=== PATIENT | female | born 1970 | race Caucasian/White ===

== ENCOUNTER → 2016-10-21 | Outpatient (CLI) | payer BC ==
--- NOTE | 2016-10-22 09:28 | MM ---
Reason for exam: screening (asymptomatic). Last mammogram was performed 1 year ago. Physical Findings: A clinical breast exam by your physician is recommended on an annual basis and results should be correlated with mammographic findings. MG 3D Screening Mammo W/Cad Bilateral CC and MLO view(s) were taken. Prior study comparison: October 14, 2015, bilateral MG 3d screening mammo w/cad. June 25, 2013, bilateral MG screening mammo w CAD. The breast tissue is extremely dense which could obscure a lesion on mammography. There are typically benign round calcifications in both breasts. There is no discrete abnormality. ASSESSMENT: Negative, BI-RAD 1 RECOMMENDATION: Routine screening mammogram of both breasts in 1 year.
== END | disposition home or self-care (01) ==
LOC: RADMAMWWP 07:41
PROVIDERS: ATTEND Obstetrics & Gynecology
DX: Z12.31 Encounter for screening mammogram for malignant neoplasm of breast (principal)
CPT/HCPCS: 77063; G0202

== ENCOUNTER → 2016-10-22 | Outpatient (CLI) | payer BC ==
[2016-10-22 16:37] LABS: Estradiol 183.4 pg/mL
== END | disposition home or self-care (01) ==
LOC: LABWHC1 10:53
PROVIDERS: ATTEND Clinical Nurse Specialist Women's Health
DX: N95.1 Menopausal and female climacteric states (principal); R53.83 Other fatigue
CPT/HCPCS: 36415; 82306; 82607; 82670; 83001; 84144; 84403

== ENCOUNTER → 2016-10-22 | Outpatient (CLI) | payer BC ==
--- NOTE | 2016-10-22 14:41 | US ---
EXAMINATION TYPE: US thyroid st tissue head/neck DATE OF EXAM: 10/22/2016 COMPARISON: NONE CLINICAL HISTORY: E04.2 Nontoxic Multinodular Goiter. Follow up exam, patient had 4 previous nodules biopsied and has since gone on thyroid medication and states her thryoid feels smaller GLAND SIZE: Right Lobe: 5.7 x 1.8 x 1.8 cm Overall Parenchyma: heterogenous Left Lobe: 4.1 x 1.4 x 1.2 cm Overall Parenchyma: heterogeneous Isthmus Thickness: 0.9 cm NODULES RIGHT: # of nodules measured on right: 2 1. 1.7 X 2.0 x 2.0 cm hyperechoic solid nodule at the mid pole with well-defined margins. This nod ule is wider than tall and shows no intranodular vascularity. Prior size: 2.3 x 2.0 x 2.1 cm 2. 1.3 X 1.4 x 1.2 cm hyperechoic solid nodule at the lower pole with well-defined margins. This no dule is wider than tall and shows no intranodular vascularity. Prior size: not noted previously, maybe normal thryoid tissue posterior to larger nodule that is bulbus in appearance versus true nodule second nodule noted previously appears to be normal tissue on today's scan with no definite borders Radiologist: Inspection, these nodules appear similar to 10/31/2015. LEFT: # of nodules measured on left: 0 *unable to define nodule previously seen ISTHMUS: # of nodules measured in the isthmus: 1 1. 1.5 X 1.4 x 0.9 cm hyperechoic solid nodule with well-defined margins. This nodule is wider lala n tall and shows intranodular vascularity. Prior size: 1.3 x 1.5 x 0.9 cm Bilateral neck scanned, no evidence of lymphadenopathy. IMPRESSION: On inspection, the thyroid lobe nodules appear to been present previously and are stable from 6. Follow-up study in 6 months can be performed for confirmation of stability
== END | disposition home or self-care (01) ==
LOC: RADUSWWP 09:38
PROVIDERS: ATTEND Internal Medicine Endocrinology, Diabetes & Metabolism
DX: E04.2 Nontoxic multinodular goiter (principal)
CPT/HCPCS: 76536

== ENCOUNTER → 2017-11-08 | Outpatient (CLI) | payer BC ==
--- NOTE | 2017-11-10 13:24 | MM ---
Reason for exam: screening (asymptomatic). Last mammogram was performed 1 year and 1 month ago. History: Took hormonal contraceptives for 2 years. Physical Findings: A clinical breast exam by your physician is recommended on an annual basis and results should be correlated with mammographic findings. MG 3D Screening Mammo W/Cad Bilateral CC and MLO view(s) were taken. Prior study comparison: October 21, 2016, bilateral MG 3d screening mammo w/cad. October 14, 2015, bilateral MG 3d screening mammo w/cad. No significant changes when compared with prior studies. ASSESSMENT: Benign, BI-RAD 2 RECOMMENDATION: Routine screening mammogram of both breasts in 1 year.
== END | disposition home or self-care (01) ==
LOC: RADMAMWWP 16:17
PROVIDERS: ATTEND Obstetrics & Gynecology
DX: Z12.31 Encounter for screening mammogram for malignant neoplasm of breast (principal)
CPT/HCPCS: 77063; 77067

== ENCOUNTER → 2018-11-25 | Outpatient (CLI) | payer BC ==
--- NOTE | 2018-11-28 09:34 | MM ---
Reason for exam: screening (asymptomatic). Last mammogram was performed 1 year and 1 month ago. History: Family history of breast cancer in sister at age 60. Took hormonal contraceptives for 2 years. Physical Findings: A clinical breast exam by your physician is recommended on an annual basis and results should be correlated with mammographic findings. MG 3D Screening Mammo W/Cad Bilateral CC and MLO view(s) were taken. Prior study comparison: November 08, 2017, bilateral MG 3d screening mammo w/cad. October 21, 2016, bilateral MG 3d screening mammo w/cad. The breast tissue is heterogeneously dense. This may lower the sensitivity of mammography. There are benign appearing round calcifications bilaterally. There is no discrete abnormality. ASSESSMENT: Benign, BI-RAD 2 RECOMMENDATION: Routine screening mammogram of both breasts in 1 year.
== END | disposition home or self-care (01) ==
LOC: RADMAMWWP 08:22
PROVIDERS: ATTEND Obstetrics & Gynecology
DX: Z12.31 Encounter for screening mammogram for malignant neoplasm of breast (principal)
CPT/HCPCS: 77063; 77067

== ENCOUNTER → 2020-01-24 | Outpatient (CLI) | payer BC ==
--- NOTE | 2020-01-25 07:19 | US ---
EXAMINATION TYPE: US thyroid st tissue head/neck DATE OF EXAM: 01/24/2020 COMPARISON: US October 22, 2016 CLINICAL HISTORY: E04.2 MULTINODULAR GOITER. Takes thyroid medication. GLAND SIZE: Right Lobe: 5.6 x 2.0 x 1.6 cm Overall Parenchyma: heterogenous Left Lobe: 3.9 x 1.4 x 0.9 cm Overall Parenchyma: heterogeneous Isthmus Thickness: 0.8 cm NODULES RIGHT: # of nodules measured on right: 2 1. 2.2 X 1.9 x 1.5 cm mixed cystic and solid, hyperechoic nodule mid pole, which is wider than tall , with lobulated or irregular margins, without echogenic foci. Prior size: 1.7 x 2.2 x 2.0 cm 2. 1.2 X 1.2 x 1.1 cm solid or almost completely solid, isoechoic nodule in lower pole, which is wi faye than tall, with smooth margins, without echogenic foci. Prior size: 1.3 x 1.4 x 1.2 cm LEFT: # of nodules measured on left: 0 ISTHMUS: # of nodules measured in the isthmus: 1 mid pole 1. 1.4 X 1.2 x 0.8 cm solid or almost completely solid, hyperechoic nodule, which is wider than carlos l, with smooth margins, without echogenic foci. Prior size: 1.5 x 1.4 x 0.9 cm Bilateral neck scanned: no evidence of lymphadenopathy. Redemonstration markedly heterogeneous thyroid with slightly asymmetric right thyroid lobe prominence and bilateral nodules as detailed above without significant interval change from 2017 study. IMPRESSION: As above. No new suspicious nodules.
== END | disposition home or self-care (01) ==
LOC: RADUSWWP 16:22
PROVIDERS: ATTEND Internal Medicine
DX: E04.2 Nontoxic multinodular goiter (principal); E07.89 Other specified disorders of thyroid
CPT/HCPCS: 76536

== ENCOUNTER → 2020-04-10 | Outpatient (CLI) | payer BC ==
--- NOTE | 2020-04-11 14:07 | MM ---
Reason for exam: screening (asymptomatic). Last mammogram was performed 1 year and 4 months ago. History: Patient is postmenopausal. Family history of breast cancer in sister at age 60. Took hormonal contraceptives for 2 years. Physical Findings: A clinical breast exam by your physician is recommended on an annual basis and results should be correlated with mammographic findings. MG 3D Screening Mammo W/Cad Bilateral CC and MLO view(s) were taken. Prior study comparison: November 25, 2018, bilateral MG 3d screening mammo w/cad. November 08, 2017, bilateral MG 3d screening mammo w/cad. The breast tissue is heterogeneously dense. This may lower the sensitivity of mammography. There is no discrete abnormality. No significant changes when compared with prior studies. ASSESSMENT: Negative, BI-RAD 1 RECOMMENDATION: Routine screening mammogram of both breasts in 1 year.
== END | disposition home or self-care (01) ==
LOC: RADMAMWWP 07:06
PROVIDERS: ATTEND Obstetrics & Gynecology
DX: Z12.31 Encounter for screening mammogram for malignant neoplasm of breast (principal); Z80.3 Family history of malignant neoplasm of breast
CPT/HCPCS: 77063; 77067

== ENCOUNTER → 2021-09-29 | Outpatient (CLI) | payer BC ==
--- NOTE | 2021-09-30 10:57 | US ---
EXAMINATION TYPE: US thyroid st tissue head/neck DATE OF EXAM: 09/29/2021 COMPARISON: 01/24/20 CLINICAL HISTORY: E04.2 NONTOXIC MULTINODULAR GOITER. Hx of thyroid nodules. FNA done approx 3 years ago. GLAND SIZE: Right Lobe: 4.4 x 1.9 x 1.8 cm Overall Parenchyma: heterogenous Left Lobe: 4.5 x 1.3 x 1.1 cm Overall Parenchyma: heterogeneous Isthmus Thickness: 1.0 cm NODULES RIGHT: # of nodules measured on right: 2 1. 2.1 X 1.8 x 1.6 cm, mid mid, solid or almost completely solid, hyperechoic nodule, which is wide r than tall, with lobulated or irregular margins, without echogenic foci. TR 3 Prior size: 2.2 x 1.9 x 1.5 cm 2019. 2.0 x 2.0 x 1.7 cm 2017. 2. 1.3 X 1.2 x 1.0 cm, lower mid, solid or almost completely solid, isoechoic nodule, which is wide r than tall, with lobulated or irregular margins, without echogenic foci. Prior size: 1.2 x 1.2 x 1.1 cm LEFT: # of nodules measured on left: 0 ISTHMUS: # of nodules measured in the isthmus: 1 1. 1.5 X 1.4 x 0.8 cm solid or almost completely solid, hyperechoic nodule, which is wider than carlos l, with smooth margins, without echogenic foci. Prior size 1.4 x 1.2 x 0.8 cm. Bilateral neck scanned, no evidence of lymphadenopathy. IMPRESSION: 1. Mildly suspicious nodule right lobe thyroid. 2017 ACR TI-RADS LEVEL: TR-RADS 3 - Mildly Suspicious: Follow if > 1.5 cm, FNA if > 2.5 cm *Highest TI-RADS level nodule reported
== END | disposition home or self-care (01) ==
LOC: RADUSWWP 16:53
PROVIDERS: ATTEND Internal Medicine
DX: E04.2 Nontoxic multinodular goiter (principal)
CPT/HCPCS: 76536

== ENCOUNTER → 2021-10-16 | Outpatient (CLI) | payer BC ==
--- NOTE | 2021-10-19 07:35 | MM ---
Reason for Exam: Screening (asymptomatic). Last mammogram was performed 1 year(s) and 6 month(s) ago. Patient History: Menarche at age 11. First Full-Term at age 29. Postmenopausal. Currently using Progesterone, beginning at age 48 for 3 years. Patient used Hormonal Contraceptives for 2 years. Sister had breast cancer, age 60. Risk Values: Naye 5 year model risk: 2.2%. NCI Lifetime model risk: 18.0%. Prior Study Comparison: 11/08/2017 Bilateral Screening Mammogram, [facility]. 11/25/2018 Bilateral Screening Mammogram, [facility]. 04/10/2020 Bilateral Screening Mammogram, [facility]. Tissue Density: The breast tissue is heterogeneously dense. This may lower the sensitivity of mammography. Findings: Analyzed By CAD. There is no suspicious group of microcalcifications or new suspicious mass in either breast. Overall Assessment: Negative, BI-RAD 1 Management: Screening Mammogram of both breasts in 1 year. A clinical breast exam by your physician is recommended on an annual basis and results should be correlated with mammographic findings. Electronically signed and approved by: Lang Duval DO
== END | disposition home or self-care (01) ==
LOC: RADMAMWWP 08:28
PROVIDERS: ATTEND Obstetrics & Gynecology
DX: Z12.31 Encounter for screening mammogram for malignant neoplasm of breast (principal); Z78.0 Asymptomatic menopausal state; Z80.3 Family history of malignant neoplasm of breast
CPT/HCPCS: 77063; 77067

== ENCOUNTER → 2022-09-16 | Outpatient (CLI) | payer BC ==
--- NOTE | 2022-09-16 19:57 | US ---
EXAMINATION TYPE: US thyroid st tissue head/neck DATE OF EXAM: 09/16/2022 COMPARISON: PRIOR 09/29/2021 CLINICAL INDICATION: Female, 51 years old with history of E04.2 MULTINODULAR GOITER; prior negative t hyroid bx on right GLAND SIZE: Right Lobe: 6.5 x 2.1 x 1.8 cm Overall Parenchyma: heterogenous Left Lobe: 3.7 x 1.2 x 1.6 cm Overall Parenchyma: heterogenous Isthmus Thickness: 1.4 cm NODULES RIGHT: # of nodules measured on right: 2. TR3 nodules 1. 2.6 X 1.9 x 2.0 cm, echogenic solid nodule at the mid pole, which is wider than tall, with jessy h margins, without echogenic foci. Prior size: 2.1 x 1.8 x 1.6 cm 2. 1.3 X 1.2 x 1.2 cm, echogenic solid nodule at the inferior pole, which is wider than tall, with smooth margins, without echogenic foci. Prior size: 1.3 x 1.2 x 1.0 cm LEFT: # of nodules measured on left: 1, TR3 nodule 1. 1.2 X 0.6 x 0.9 cm, echogenic solid nodule at the posterior mid pole, which is wider than tall, with margins, without echogenic foci. Prior size: no previous measurements ISTHMUS: # of nodules measured in the isthmus: 1, TR3 nodule 1. 1.7 X 1.1 x 1.7 cm echogenic, solid nodule, which is wider than tall, with smooth margins, witho ut echogenic foci. Prior size: 1.4 x 1.2 x 0.8 cm Resident Manager notes: Multinodular goiter. Enlarged right lobe. Bilateral neck scanned, no evidence of lymphadenopathy. IMPRESSION: Multinodular goiter. Multiple solid TR3 nodules are present throughout. A nodule on the right measuri ng 2.6 cm has enlarged from 2.1 cm, previously (FNA can be considered for this nodule). A 1.2 cm nodu le on the left may be new and can be followed.
== END | disposition home or self-care (01) ==
LOC: RADUSWWP 13:11
PROVIDERS: ATTEND Internal Medicine
DX: E04.2 Nontoxic multinodular goiter (principal)
CPT/HCPCS: 76536

== ENCOUNTER → 2022-10-22 | Outpatient (CLI) | payer BC ==
--- NOTE | 2022-10-26 08:33 | MM ---
Reason for Exam: Screening (asymptomatic). Last mammogram was performed 1 year(s) and 1 month(s) ago. Patient History: Menarche at age 11. First Full-Term at age 29. Postmenopausal. Patient has history of breast feeding. Currently using Progesterone, beginning at age 48 for 3 years. Patient used Hormonal Contraceptives for 2 years. Sister had breast cancer, age 60. Risk Values: Naye 5 year model risk: 2.3%. NCI Lifetime model risk: 17.8%. Prior Study Comparison: 11/25/2018 Bilateral Screening Mammogram, [facility]. 04/10/2020 Bilateral Screening Mammogram, [facility]. 10/16/2021 Bilateral MG 3D screening mammo w/cad, [facility]. Tissue Density: The breast tissue is heterogeneously dense. This may lower the sensitivity of mammography. Findings: Analyzed By CAD. There is no suspicious group of microcalcifications or new suspicious mass. Overall Assessment: Negative, BI-RAD 1 Management: Screening Mammogram of both breasts in [address] [facility] will attempt to contact patient to return for supplemental views and ultrasound if indicated. Patient should continue monthly self-breast exams. A clinical breast exam by your physician is recommended on an annual basis. This exam should not preclude additional follow-up of suspicious palpable abnormalities. Note on Naye scores and lifetime risk: 1. A Naye score greater than 3% is considered moderate risk. If this is the case, consider specialist referral to assess eligibility for a risk reducing agent. 2. If overall lifetime risk for the development of breast cancer is 20% or higher, the patient may qualify for future screening with alternating mammogram and breast MRI. Electronically signed and approved by: Lang Duval DO
== END | disposition home or self-care (01) ==
LOC: RADMAMWWP 07:28
PROVIDERS: ATTEND Obstetrics & Gynecology
DX: Z12.31 Encounter for screening mammogram for malignant neoplasm of breast (principal); Z78.0 Asymptomatic menopausal state; Z80.3 Family history of malignant neoplasm of breast
CPT/HCPCS: 77063; 77067

== ENCOUNTER → 2024-01-30 | Outpatient (CLI) | payer BC ==
--- NOTE | 2024-01-30 15:21 | US ---
EXAMINATION TYPE: US thyroid st tissue head/neck DATE OF EXAM: 01/30/2024 COMPARISON: 09/16/2022 CLINICAL INDICATION: Female, 53 years old with history of E04.1 THYROID NODULE; Patient denies any ot her signs, symptoms, or relevant history TECHNIQUE: Grayscale and color Doppler imaging of the thyroid gland. FINDINGS: GLAND SIZE: Right Lobe: 5.1 x 1.6 x 2.3 cm Overall Parenchyma: heterogeneous Left Lobe: 4.1 x 1.2 x 1.8 cm Overall Parenchyma: heterogeneous Isthmus Thickness: 1.0 cm NODULES RIGHT: # of nodules measured on right: 2 1. 2.6 X 1.7 x 2.1 cm, upper lateral, Prior size: 2.6 x 1.9 x 1.8 cm TIRADS Score: 3 TIRADS Category 3: Composition: Solid or almost completely solid (2 points). Echogenicity: Hyperechoic or isoechoic (1 point). Shape: Wider than tall (0 points). Margin: Smooth (0 points). Echogenic foci: None or large comet-tail artifacts (0 points) Recommendation: If >2.5cm: FNA; If >1.5cm: Follow up at 1,3,5 years 2. 0.9 X 1.0 x 1.2 cm, lower lateral, Prior size: 1.3 x 1.2 x 1.2 cm TIRADS Score: 3 TIRADS Category 3: Composition: Solid or almost completely solid (2 points). Echogenicity: Hyperechoic or isoechoic (1 point). Shape: Wider than tall (0 points). Margin: Smooth (0 points). Echogenic foci: None or large comet-tail artifacts (0 points) Recommendation: If >2.5cm: FNA; If >1.5cm: Follow up at 1,3,5 years LEFT: # of nodules measured on left: 1 1. 1.6 X 0.8 x 1.3 cm, mid lateral, Prior size: 1.2 x 0.6 x 0.9 cm TIRADS Score: 3 TIRADS Category 3: Composition: Solid or almost completely solid (2 points). Echogenicity: Hyperechoic or isoechoic (1 point). Shape: Wider than tall (0 points). Margin: Smooth (0 points). Echogenic foci: None or large comet-tail artifacts (0 points) Recommendation: If >2.5cm: FNA; If >1.5cm: Follow up at 1,3,5 years ISTHMUS: # of nodules measured in the isthmus: 1 1. 1.8 X 1.0 x 1.4 cm solid or almost completely solid, Prior size: 1.7 x 1.1 x 1.7 cm TIRADS Score: 3 TIRADS Category 3: Composition: Solid or almost completely solid (2 points). Echogenicity: Hyperechoic or isoechoic (1 point). Shape: Wider than tall (0 points). Margin: Smooth (0 points). Echogenic foci: None or large comet-tail artifacts (0 points) Recommendation: If >2.5cm: FNA; If >1.5cm: Follow up at 1,3,5 years Bilateral neck scanned, no evidence of lymphadenopathy. IMPRESSION: Heterogenous thyroid gland with thyroid nodules present. Correlate with thyroid markers for thyroidit is. On thyroid nodule in the right mid criteria for tissue sampling measuring up to 2.6 cm if not alr sangita performed. [facility], , 01/30/2024 3:19 PM
== END | disposition home or self-care (01) ==
LOC: RADUSWWP 14:32
PROVIDERS: ATTEND Internal Medicine
DX: E06.9 Thyroiditis, unspecified (principal)
CPT/HCPCS: 76536

== ENCOUNTER → 2024-02-09 | Outpatient (CLI) | payer BC ==
--- NOTE | 2024-02-10 11:46 | MM ---
Reason for Exam: Screening (asymptomatic). Last mammogram was performed 1 year(s) and 3 month(s) ago. Patient History: Menarche at age 11. First Full-Term at age 29. Postmenopausal. Patient has history of breast feeding. Currently using Progesterone, beginning at age 48 for 3 years. Patient used Hormonal Contraceptives for 2 years. Sister had breast cancer, age 60. Risk Values: Naye 5 year model risk: 2.4%. NCI Lifetime model risk: 17.5%. Prior Study Comparison: 04/10/2020 Bilateral Screening Mammogram, [facility]. 10/16/2021 Bilateral MG 3D screening mammo w/cad, [facility]. 10/22/2022 Bilateral MG 3D screening mammo w/cad, [facility]. Tissue Density: The breasts are heterogeneously dense, which may obscure small masses. Findings: Analyzed By CAD. There is no suspicious group of microcalcifications or new suspicious mass in either breast. Overall Assessment: Negative, BI-RAD 1 Management: Screening Mammogram of both breasts in 1 year. . Patient should continue monthly self-breast exams. A clinical breast exam by your physician is recommended on an annual basis. This exam should not preclude additional follow-up of suspicious palpable abnormalities. Note on Naye scores and lifetime risk: 1. A Naye score greater than 3% is considered moderate risk. If this is the case, consider specialist referral to assess eligibility for a risk reducing agent. 2. If overall lifetime risk for the development of breast cancer is 20% or higher, the patient may qualify for future screening with alternating mammogram and breast MRI. [facility], , 02/10/2024 11:43 AM. Electronically signed and approved by: Pablo Ferguson M.D. Radiologis
== END | disposition home or self-care (01) ==
LOC: RADMAMWWP 07:18
PROVIDERS: ATTEND Obstetrics & Gynecology
DX: Z12.31 Encounter for screening mammogram for malignant neoplasm of breast (principal); R92.333 Mammographic heterogeneous density, bilateral breasts; Z78.0 Asymptomatic menopausal state; Z80.3 Family history of malignant neoplasm of breast
CPT/HCPCS: 77063; 77067